=== PATIENT | female | born 1960 | race Caucasian/White ===

== ENCOUNTER 2020-03-12 06:26 | Outpatient (REF) | payer OTHER, SELFPAY ==
[2020-03-12 12:06] LABS: Cholesterol 217 mg/dL; HDL Cholesterol 59 mg/dL; LDL Cholesterol Calculated 145 mg/dl; Triglycerides 65 mg/dL
== END 2020-03-12 06:27 | disposition home or self-care (01) ==
LOC: HO.HMGCLDS 06:26
PROVIDERS: PCP Internal Medicine; Visit Provider Internal Medicine
DX: E78.00 Pure hypercholesterolemia, unspecified (principal)
CPT/HCPCS: 80061

== ENCOUNTER 2020-03-21 09:53 | Outpatient (REF) | payer OTHER, SELFPAY ==
[2020-03-21 13:58] LABS: MANUAL DIFF FLAG NO
[2020-03-21 14:15] LABS: Basophils Absolute Auto 0.1 X10*3/uL (0.0-0.2); Basophils Percent Auto 0.9 % (0-2); Eosinophils Absolute Auto 0.2 X10*3/uL (0.0-0.4); Eosinophils Percent Auto 2.7 % (0-4); Hematocrit 39.4 % (37-47); Imm Gran Abs Auto 0.01 X10*3/uL (0.00-0.03); Imm Gran Pct Auto 0.1 % (0.0-0.4); Lymphocytes Absolute Auto 2.5 X10*3/uL (1.2-4.9); Lymphocytes Percent Auto 36.6 % (20-40); Mean Corpuscular Hemoglobin 30.5 pg (27.0-33.0); Mean Corpuscular Volume 92.5 fL (80-98); Monocytes Absolute Auto 0.4 X10*3/uL (0.1-1.2); Monocytes Percent Auto 6.4 % (2-11); Neutrophils Absolute Auto 3.6 X10*3/uL (2.0-8.3); Neutrophils Percent Auto 53.3 % (45-73); Platelet Count 263 X10*3/uL (160-400); Red Blood Count 4.26 X10*6/uL (4.20-5.50); Red Cell Distribution Width 13.9 % (11.0-16.0); White Blood Count 6.8 X10*3/uL (4.8-10.8)
[2020-03-21 14:42] LABS: Alanine Aminotransferase 14 U/L (0-31); Albumin Level 4.3 g/dL (3.5-5.0); Alkaline Phosphatase 63 U/L (39-117); Anion Gap 11 (12-20); Aspartate Amino Transferase 20 U/L (5-31); Bilirubin Total 0.7 mg/dL (0.0-1.0); Blood Urea Nitrogen 11 mg/dL (9-16); Calcium 8.8 mg/dL (8.4-10.2); Carbon Dioxide 31 mmol/L (22-29); Chloride 102 mmol/L (96-108); Estimated Glomerular Filt Rate > 60; Glucose Random 80 mg/dL (60-115); Potassium 4.3 mmol/l (3.3-5.1); Sodium 140 mmol/L (135-145); Total Protein 6.7 g/dL (6.5-8.0)
[2020-03-21 15:04] LABS: Free T4 (Free Thyroxine) 0.92 ng/dL (0.71-1.85); Thyroid Stimulating Hormone 0.74 uIU/mL (0.32-4.0)
== END 2020-03-21 09:54 | disposition home or self-care (01) ==
LOC: HO.10HDL 09:53
PROVIDERS: Visit Provider Internal Medicine
DX: I10 Essential (primary) hypertension (principal); R00.2 Palpitations; K21.9 Gastro-esophageal reflux disease without esophagitis; Z98.84 Bariatric surgery status
CPT/HCPCS: 36415; 80053; 84439; 84443; 85025

== ENCOUNTER → 2020-04-28 13:19 | Outpatient (REF) | payer MEDICARE, SELFPAY ==
--- NOTE | 2020-04-28 13:40 | ECG_ITS ---
Hook-up date: 2020-04-28 13:36:00 Duration: 25:23:00 Test Indications: palpitations Medications: 58992 QRS complexes * Ventricular ectopics which represent % of total QRS comp. 2223 Supraventricular ectopics which represent 2 % of total QRS comp. * Paced QRS complexs which represent % of total QRS comp. VENTRICULAR ECTOPY * Isolated * Bigeminal Cycles * Couplets * Runs * Beats in Runs * Beats LONGEST at * BPM at :: -- * Beats FASTEST at * BPM at :: -- SUPRAVENTRICULAR ECTOPY 217 Isolated 18 Couplets 0 Runs 0 Beats in Runs 0 Beats LONGEST at 65 BPM at :: -- 0 Beats FASTEST at 100 BPM at :: -- HEART RATES 48 MIN at 00:14:37 2020-04-29 69 AVG 113 MAX at 15:08:28 2020-04-28 LONGEST RR 1.2560 secs at 00:36:39 2020-04-29 S-T LEVELS Channel 1 - 128 mm at 13:36:00 2020-04-28 - 128 mm at 13:36:00 2020-04-28 Channel 2 - 128 mm at 13:36:00 2020-04-28 - 128 mm at 13:36:00 2020-04-28 Channel 3 - 128 mm at 03:25:51 -- - 128 mm at 03:25:51 Basic rhythm Normal sinus rhythm No long pause or profound bradycardia Occasional Premature atrial complexes Patient did not report any symptoms in the diary Referred By: Juan F Mcginnis Overread By: ELIZ WASHBURN MD
== END ==
LOC: HO.CARD 13:19
PROVIDERS: Visit Provider Internal Medicine
DX: R00.2 Palpitations (principal)
CPT/HCPCS: 93225; 93226